=== PATIENT | male | born 1945 | race Caucasian/White ===

== ENCOUNTER 2021-04-12 15:22 | Emergency (ER) | payer MEDICARE ==
[~2021-04-12] VITALS: Ht 182.9 cm; Wt 74.8 kg
[2021-04-12] MEDS ORDERED: AUGMENTIN 875-1 EACH PO (17:12)
[2021-04-12] MEDS ORDERED: HYDROCODON-ACE1 EAC7 PO (17:12)
[2021-04-12 17:30] VITALS: BP 149/77
== END 2021-04-12 17:30 | disposition home or self-care (01) ==
LOC: M.ERS 15:22
DX: K91.840 Postprocedural hemorrhage of a digestive system organ or structure following a digestive system procedure (principal); R06.02 Shortness of breath; Z88.8 Allergy status to other drugs, medicaments and biological substances